=== PATIENT | female | born 1960 | race Caucasian/White ===

== ENCOUNTER 2021-08-11 09:11 | Emergency (ER) | payer OTHER ==
[2021-08-11] VITALS (9 sets, daily range): BP systolic 137–166; BP diastolic 65–127
[~2021-08-11] VITALS: Ht 167.6 cm; Wt 73.0 kg
[~2021-08-11 09:11] MED LIST: CIPRO500 MG OR; CLINDAMYCIN300 MG OR; LORTAB 5 OR; MEDDOSEPAK OR; PERCOCET 5/325M1 TAB OR
[2021-08-11 10:06] LABS: HEMOGLOBIN 13.4 g/dl (12.0-16.0); IMMATURE GRANULOCYTES 0.2 % (0.0-5.0); MEAN CELL VOLUME 101.2 fL CALC (80.0-100.0); MEAN CORPUSCULAR HGB 33.1 pG CALC (26.0-32.0); MEAN CORPUSCULAR HGB CONC 32.7 g/dL CAL (32.0-36.0); NEUT# 6.56 thou/uL (2.00-7.15); RED BLOOD COUNT 4.05 mill/uL (4.20-5.60); RED CELL DISTRI WIDTH 12.8 % (11.5-15.5)
[2021-08-11 10:12] LABS: URINE BILIRUBIN - DIPSTICK NEGATIVE (NEGATIVE); URINE BLOOD DIPSTICK NEGATIVE (NEGATIVE); URINE COLOR YELLOW; URINE GLUCOSE - DIPSTICK NEGATIVE (NEGATIVE); URINE KETONE NEGATIVE (NEGATIVE); URINE LEUK ESTERASE NEGATIVE (NEGATIVE); URINE PH 5.5 (4.5-8.0); URINE PROTEIN - DIPSTICK NEGATIVE (NEG-TRACE); URINE SPECIFIC GRAVITY 1.015; URINE UROBILINOGEN - DIPSTICK 0.2 E.U./dL (0.2)
[2021-08-11 10:17] LABS: URINE NITRITE - DIPSTICK NEGATIVE (Negative)
[2021-08-11 10:24] LABS: ALKALINE PHOSPHATASE 71 u/l (38-126); AMYLASE 47 u/l (30-110); ANION GAP 11 (6-22 (CALC)); BILIRUBIN, TOTAL 0.5 mg/dL (0.0-1.4); BUN 19 mg/dL (8-23); BUN/CREATININE RATIO 26 (12-20 (CALC)); CARBON DIOXIDE 25 mmol/l (22-30); CHLORIDE 109 mmol/l (95-108); CREATININE 0.7 mg/dL (0.5-1.0); GFR > 60 ML/MIN (>=60 (CALC)); GFR FOR AFR.AMER. > 60 ML/MIN (>=60 (CALC)); LIPASE 123 u/l (23-300); POTASSIUM 4.4 mmol/l (3.5-5.1); SGOT/AST 21 u/l (9-36); SODIUM 140 mmol/l (137-146); TOTAL PROTEIN 6.6 g/dL (6.3-8.2)
[2021-08-11 10:25] LABS: ACT PARTIAL THROMBO TIME 24.4 SECONDS (20.0-32.5); INTERNATIONAL NORMALIZED RATIO 0.9 RATIO (0.7-1.3); PROTHROMBIN TIME 9.4 SECONDS (9.0-12.5)
[2021-08-11] MEDS ORDERED: HYDROCO/APAP1 TA9 PO (11:51)
== END 2021-08-11 12:01 | disposition home or self-care (01) | DRG 392 ==
LOC: ED 09:11
DX: R10.32 Left lower quadrant pain (principal); K57.30 Diverticulosis of large intestine without perforation or abscess without bleeding; Z20.822 Contact with and (suspected) exposure to COVID-19
CPT/HCPCS: Q9967

== ENCOUNTER 2022-06-06 12:54 | Emergency (ER) | payer OTHER ==
[~2022-06-06] VITALS: Ht 165.1 cm; Wt 77.1 kg
[~2022-06-06 12:54] MED LIST changes: +HYDROCO/APAP1 TA9 PO
[2022-06-06 13:42] LABS: BASO% 0.9 % (0-3); EOS% 3.3 % (0-8); HEMATOCRIT 40.4 % (37.0-47.0); HEMOGLOBIN 13.1 g/dl (12.0-16.0); IMMATURE GRANULOCYTES 0.1 % (0.0-5.0); LYMPH% 27.4 % (15-41); MEAN CELL VOLUME 98.1 fL CALC (80.0-100.0); MEAN CORPUSCULAR HGB 31.8 pG CALC (26.0-32.0); MEAN CORPUSCULAR HGB CONC 32.4 g/dL CAL (32.0-36.0); NEUT# 4.04 thou/uL (2.00-7.15); NEUT% 60.3 % (42-76); RED BLOOD COUNT 4.12 mill/uL (4.20-5.60); RED CELL DISTRI WIDTH 12.6 % (11.5-15.5)
[2022-06-06] MEDS ORDERED: BUPROPION100 MG PO (13:46)
[2022-06-06 14:10] LABS: ALKALINE PHOSPHATASE 86 u/l (38-126); ANION GAP 8 (6-22 (CALC)); BILIRUBIN, TOTAL 0.3 mg/dL (0.02-1.3); BUN 20 mg/dL (8-23); BUN/CREATININE RATIO 23 (12-20 (CALC)); CARBON DIOXIDE 22 mmol/l (22-30); CHLORIDE 110 mmol/l (95-108); CREATININE 0.9 mg/dL (0.5-1.0); GFR FOR AFR.AMER. > 60 ML/MIN (>=60 (CALC)); GFR OTHER RACES > 60 ML/MIN (>=60 (CALC)); LIPASE 111 u/l (23-300); POTASSIUM 4.3 mmol/l (3.5-5.1); SGOT/AST 25 u/l (9-36); SODIUM 136 mmol/l (137-146); TOTAL PROTEIN 6.7 g/dL (6.3-8.2)
[2022-06-06 17:18] LABS: URINE BILIRUBIN - DIPSTICK NEGATIVE (NEGATIVE); URINE BLOOD DIPSTICK NEGATIVE (NEGATIVE); URINE COLOR YELLOW; URINE GLUCOSE - DIPSTICK NEGATIVE (NEGATIVE); URINE KETONE NEGATIVE (NEGATIVE); URINE LEUK ESTERASE NEGATIVE (NEGATIVE); URINE NITRITE - DIPSTICK NEGATIVE (Negative); URINE PROTEIN - DIPSTICK NEGATIVE (NEG-TRACE); URINE SPECIFIC GRAVITY <=1.005; URINE UROBILINOGEN - DIPSTICK 0.2 E.U./dL (0.2)
[2022-06-06] MEDS ORDERED: TORADOL PO (17:23)
[2022-06-06] MEDS ORDERED: HYDROCO/APAP1 TA9 PO (17:32)
[2022-06-06 18:22] VITALS: BP 156/75
== END 2022-06-06 18:34 | disposition home or self-care (01) | DRG 379 ==
LOC: ED 12:54
PROVIDERS: Nurse Practitioner
DX: K57.31 Diverticulosis of large intestine without perforation or abscess with bleeding (principal)
CPT/HCPCS: Q9967

== ENCOUNTER 2023-11-25 10:18 | Observation (INO) | payer MEDICARE, OTHER ==
[~2023-11-25] VITALS: Ht 165.1 cm; Wt 76.5 kg
[2023-11-25] VITALS (37 sets, daily range): BP systolic 85–178; BP diastolic 60–112
[~2023-11-25 10:18] MED LIST changes: +AMLODIPINE BESYL5 MG PO; +BUPROPION100 MG PO; +TORADOL PO
[2023-11-25] MEDS ORDERED: MORPHINE SULFATE 4 MG/ML VIAL IV ONE (10:25)
[2023-11-25 10:39] LABS: BASO% 0.6 % (0-3); EOS% 1.5 % (0-8); HEMATOCRIT 41.7 % (37.0-47.0); HEMOGLOBIN 13.5 g/dl (12.0-16.0); IMMATURE GRANULOCYTES 0.1 % (0.0-5.0); MEAN CORPUSCULAR HGB 32.1 pG CALC (26.0-32.0); MEAN CORPUSCULAR HGB CONC 32.4 g/dL CAL (32.0-36.0); MONO% 6.2 % (2-13); NEUT# 10.36 thou/uL (2.00-7.15); NEUT% 81.6 % (42-76); RED BLOOD COUNT 4.21 mill/uL (4.20-5.60); RED CELL DISTRI WIDTH 12.4 % (11.5-15.5)
[2023-11-25] MEDS ORDERED: NITROGLYCERIN IN D5W 250 ML IV ONE (10:40)
[2023-11-25] MEDS ORDERED: SODIUM CHLORIDE 0.9% 500 ML IV ONE (10:40)
[2023-11-25 11:00] LABS: ALBUMIN 4.1 g/dL (3.2-5.0); ALKALINE PHOSPHATASE 100 u/l (38-126); ANION GAP 10 (6-22 (CALC)); BILIRUBIN, TOTAL 0.4 mg/dL (0.02-1.3); BUN 23 mg/dL (8-23); BUN/CREATININE RATIO 22 (12-20 (CALC)); CHLORIDE 112 mmol/l (95-108); CREATININE 1.1 mg/dL (0.5-1.0); ESTIMATED GFR 56 ML/MIN (>=90 (CALC)); POTASSIUM 4.9 mmol/l (3.5-5.1); SGOT/AST 29 u/l (9-36); SODIUM 139 mmol/l (137-146); TOTAL PROTEIN 7.3 g/dL (6.3-8.2)
[2023-11-25] MEDS ORDERED: HYDROmorphone HCL 2 MG/AMP IV ONE (11:00)
[2023-11-25 11:13] LABS: CARBON DIOXIDE 22 mmol/l (22-30)
[2023-11-25] MEDS ORDERED: ASPIRIN 81 MG/TAB PO ONE (13:05)
[2023-11-25] MEDS ORDERED: ENOXAPARIN SODIUM 100 MG/ML SYR SC ONE (13:05)
[2023-11-25] MEDS ORDERED: OMEPRAZOLE DR20 MG (14:41)
[2023-11-25] MEDS ORDERED: MAGNESIUM HYDROXIDE 30 ML UDC PO PRN (15:05)
[2023-11-25] MEDS ORDERED: ACETAMINOPHEN 325 MG/TAB PO PRN (15:05)
[2023-11-25] MEDS ORDERED: SODIUM CHLORIDE 0.9% 1,000 ML IV PRN (15:05)
[2023-11-25] MEDS ORDERED: buPROPion HCL 150 MG TAB SR PO SCH (16:00)
[2023-11-25] MEDS ORDERED: amLODIPine BESYLATE 5 MG/TAB PO SCH (16:00)
[2023-11-25] MEDS ORDERED: PANTOPRAZOLE SODIUM Sesquihydr 40 MG/TAB PO SCH (16:00)
[2023-11-25] MEDS ORDERED: SINGULAIR10 MG PO (16:27)
[2023-11-25] MEDS ORDERED: ALPRAZolam 0.5 MG/TAB PO PRN (16:50)
[2023-11-25] MEDS ORDERED: HYDROcodone 5 MG/Acetaminophen 325 MG/COMBO PO PRN (18:50)
[2023-11-26 00:05] VITALS: BP 128/71
[2023-11-26 01:00] VITALS: BP 124/67
[2023-11-26 05:26] LABS: BASO% 0.4 % (0-3); EOS% 1.3 % (0-8); IMMATURE GRANULOCYTES 0.2 % (0.0-5.0); LYMPH% 12.8 % (15-41); MEAN CELL VOLUME 98.4 fL CALC (80.0-100.0); MEAN CORPUSCULAR HGB 31.9 pG CALC (26.0-32.0); MEAN CORPUSCULAR HGB CONC 32.4 g/dL CAL (32.0-36.0); MONO% 9.8 % (2-13); NEUT# 6.73 thou/uL (2.00-7.15); NEUT% 75.5 % (42-76); RED BLOOD COUNT 3.76 mill/uL (4.20-5.60); RED CELL DISTRI WIDTH 12.5 % (11.5-15.5)
[2023-11-26 05:41] LABS: ALBUMIN 3.3 g/dL (3.2-5.0); CHOLESTEROL HDL RATIO 3.4 (<4.4 (CALC))
[2023-11-26 05:49] LABS: BILIRUBIN, TOTAL 0.9 mg/dL (0.02-1.3); CREATININE 0.9 mg/dL (0.5-1.0); POTASSIUM 4.2 mmol/l (3.5-5.1); TOTAL PROTEIN 5.8 g/dL (6.3-8.2)
[2023-11-26 05:56] VITALS: BP 113/73
[2023-11-26] MEDS ORDERED: NITROSTAT0.4 MG SL (07:39)
[2023-11-26] MEDS ORDERED: ALPRAZOLAM0.5 M2 PO (07:39)
[2023-11-26] MEDS ORDERED: ASPIRIN ADULT L81 M2 PO (07:39)
[2023-11-26 08:19] VITALS: BP 122/73
[2023-11-26 09:01] VITALS: BP 105/54
[2023-11-26 09:02] VITALS: BP 105/54
== END 2023-11-26 10:30 | disposition home or self-care (01) ==
LOC: ED 10:18 → ED-I 12:30 → ED 13:03 → ICU 13:04
PROVIDERS: Family Medicine; Nurse Practitioner Family; ADMIT Internal Medicine; ATTEND Internal Medicine
DX: R07.9 Chest pain, unspecified (principal); I10 Essential (primary) hypertension; F41.9 Anxiety disorder, unspecified; E66.9 Obesity, unspecified; F17.200 Nicotine dependence, unspecified, uncomplicated
CPT/HCPCS: J1650; Q9967